=== PATIENT | male | born 1955 | race Caucasian/White ===

== ENCOUNTER 2016-09-04 17:00 | Emergency (ER) | payer BC ==
[2016-09-04 17:11] VITALS: BP 101/57; PULSE 66; RESP 18; TEMP 98.3
[2016-09-04] MEDS ORDERED: DIPH,PERTUS(ACELL)TETVAC-LF 0.5 ML VIAL IM ONE (17:47)
--- NOTE | 2016-09-04 18:16 | ED ---
Wound/Laceration HPI - General Chief Complaint: Wound/Laceration Stated Complaint: Thumb Laceration Time Seen by Provider: 09/04/16 17:42 Source: patient Mode of arrival: ambulatory Limitations: no limitations - History of Present Illness Initial Comments: Patient is a right-handed 61-year-old male presenting to the emergency department with complaints of right distal palmar thumb laceration. Onset of injury at 4 PM. Patient states he was peeling vegetables when he cut himself with a knife. Patient complains of mild pain currently rated 4 out of 10. Patient denies need for pain medication. Patient denies chills, fevers, nausea , vomiting, shortness of breath, chest pain, abdominal pain, numbness or tingling. Patient unsure when he last received his tetanus sensation. Patient denies previous injury or surgery to right hand. No treatment prior to arrival. Place: home Patient Tetanus UTD: No Context: accidental Associated Symptoms: pain - Related Data Home Medications Medication Instructions Recorded Confirmed Aspirin [Adult Low Dose Aspirin EC] 2 tab PO DAILY 07/22/16 09/04/16 Atorvastatin [Lipitor] 40 mg PO DAILY 07/22/16 09/04/16 Escitalopram [Lexapro] 10 mg PO DAILY 07/22/16 09/04/16 Losartan/Hydrochlorothiazide 1 each PO DAILY 07/22/16 09/04/16 [Losartan-Hctz 100-25 mg Tab] Niacinamide [Niacin] 500 mg PO DAILY 07/22/16 09/04/16 Vitamin E (Dl,Tocopheryl Acet) 400 unit PO DAILY 07/22/16 09/04/16 [Vitamin E] Previous Rx's Medication Instructions Recorded Cephalexin [Keflex] 500 mg PO Q6HR #28 cap 09/04/16 Allergies Allergy/AdvReac Type Severity Reaction Status Date / Time No Known Allergies Allergy Verified 09/04/16 17:11 Review of Systems ROS Statement: Those systems with pertinent positive or pertinent negative responses have been documented in the HPI. ROS Other: All systems not noted in ROS Statement are negative. Past Medical History Past Medical History: Cancer, Hyperlipidemia, Hypertension Additional Past Medical History / Comment(s): basal cell skin cancer History of Any Multi-Drug Resistant Organisms: None Reported Past Surgical History: Heart Catheterization, Orthopedic Surgery Additional Past Surgical History / Comment(s): rt foot x2 Past Anesthesia/Blood Transfusion Reactions: Motion Sickness Past Psychological History: No Psychological Hx Reported Smoking Status: Never smoker Past Alcohol Use History: None Reported Past Drug Use History: None Reported - Past Family History Mother Family Medical History: Cancer Additional Family Medical History / Comment(s): basal cell skin cancer Father Family Medical History: Cancer Additional Family Medical History / Comment(s): basal cell skin cancer General Exam Limitations: no limitations General appearance: alert, in no apparent distress Head exam: Present: atraumatic, normocephalic, normal inspection Eye exam: Present: normal appearance, PERRL, EOMI. Absent: scleral icterus, conjunctival injection, periorbital swelling ENT exam: Present: normal exam, mucous membranes moist Neck exam: Present: normal inspection, full ROM Respiratory exam: Present: normal lung sounds bilaterally. Absent: respiratory distress, wheezes, rales, rhonchi Cardiovascular Exam: Present: regular rate, normal rhythm, normal heart sounds. Absent: systolic murmur, diastolic murmur, rubs, gallop, clicks GI/Abdominal exam: Present: soft, normal bowel sounds Right Forearm Wrist exam: Present: normal inspection, full ROM. Absent: tenderness, swelling Hand Wrist exam: Present: full ROM, tenderness, laceration (3 cm laceration to palmar medial aspect of proximal thumb). Absent: swelling Neuro motor exam: Present: wrist extension intact, thumb opposition intact, thumb IP flexion intact, thumb adduction intact, fingers 2-5 abduction intact Neurosensory exam: Present: 2-point discrimination, radial nerve intact, ulnar nerve intact, median nerve intact Vascular: Present: normal capillary refill, radial pulse, brachial pulse, ulnar pulse. Absent: vascular compromise, pulse deficit radial art, pulse deficit ulnar art, pulse deficit brachial art Neurological exam: Present: alert, oriented X3 Psychiatric exam: Present: normal affect, normal mood Skin exam: Present: warm, dry, intact, normal color. Absent: rash Course Vital Signs 09/04/16 17:09 Temperature 98.3 F Pulse Rate 66 Respiratory 18 Rate Blood Pressure 101/57 O2 Sat by Pulse 97 Oximetry Procedures - Laceration Laceration #1 Consent Obtained: verbal consent Time Out Performed: No Indication: laceration Site: hand (Proximal, medial, palmar thumb) Size (cm): 3 Description: linear Depth: simple, single layer Anesthetic Used: lidocaine 1% Anesthesia Technique: local infiltration Amount (mls): 2 Pre-repair: wound explored, irrigated extensively, deep structures intact Type of Sutures: nylon Size of Sutures: 5-0 Number of Sutures: 5 Technique: simple, interrupted Patient Tolerated Procedure: well, no complications Medical Decision Making - Medical Decision Making Laceration to right thumb. X-ray without fracture or foreign body. Laceration sutured without complications. Discharge instructions and return parameters reviewed with patient. - Radiology Data Radiology results: report reviewed X-ray right thumb: No fracture or dislocation. No sign of foreign body. Joint spaces are normal. Disposition Clinical Impression: Laceration of right thumb without complication Disposition: HOME SELF-CARE Condition: Good Instructions: Finger Laceration (ED), Care For Your Stitches (ED) Additional Instructions: Keep wound dry and clean for 24 hours, if dressing exudative, sweats, change in immediately. May gently clean the edges of the wound daily with a cotton swab saturated peroxide to remove crusts. Return immediately with signs of infection such as redness or red streaks, increased pain, swelling, or fevers. Please finish antibiotics and prescribed. Return for suture removal in approximately 10 days sooner if any complications. Follow-up with primary care physician as needed. Prescriptions: Cephalexin [Keflex] 500 mg PO Q6HR #28 cap Referrals: Burak Ortez DO [Primary Care Provider] - 1-2 days Time of Disposition: 18:58
--- NOTE | 2016-09-04 18:30 | XR ---
EXAMINATION TYPE: XR finger RT DATE OF EXAM: 09/04/2016 6:12 PM COMPARISON: NONE HISTORY: Cut first digit TECHNIQUE: 3 views FINDINGS: I see no fracture nor dislocation. There is no sign of a foreign body. Joint spaces are nor mal. IMPRESSION: Negative right thumb exam.
== END 2016-09-04 19:15 | disposition home or self-care (01) ==
LOC: EC 17:00
DX: S61.011A Laceration without foreign body of right thumb without damage to nail, initial encounter (principal); W26.0XXA Contact with knife, initial encounter; Y92.009 Unspecified place in unspecified non-institutional (private) residence as the place of occurrence of the external cause; Y93.G3 Activity, cooking and baking; Z98.61 Coronary angioplasty status; Z79.82 Long term (current) use of aspirin; Z79.899 Other long term (current) drug therapy; Z23 Encounter for immunization
CPT/HCPCS: 12002; 90471; 90715; 99283

== ENCOUNTER → 2017-10-04 | Outpatient (CLI) | payer BC ==
[2017-10-04 10:07] LABS: Blood Urea Nitrogen 17 mg/dL (9-20)
--- NOTE | 2017-10-04 12:25 | MR ---
EXAMINATION TYPE: MR brain and iac wo/w con DATE OF EXAM: 10/04/2017 COMPARISON: NONE HISTORY: Benign paroxysmal vertigo TECHNIQUE: Multiplanar, multisequence images of the brain and brainstem is performed without and with IV contras t, utilizing 9.5 mL intravenous Gadavist . FINDINGS: Diffusion weighted images demonstrate no evidence of a recent infarct or other diffusion ab normality. There is a subcentimeter nodule within both parotid glands. No cerebellopontine angle mass or acoustic schwannoma. Mastoid air cells have a normal appearance. Mi dline structures demonstrate normal morphology. The craniocervical junction appears within normal li mits. Post contrast images demonstrate no abnormal enhancement. The dural venous sinuses appear patent. The re is a nasal septal deviation and mild changes of chronic sinusitis. The globes are intact. There are couple scattered areas of abnormal signal within the white matter which measure less than 5 mm and is too small to characterize. IMPRESSION: 1. No evidence of cerebellopontine angle mass or acoustic schwannoma. 2. Minimal nonspecific white matter changes. 3. There are subcentimeter nodules within the parotid gland bilaterally.
== END | disposition home or self-care (01) ==
LOC: RADMRIMAIN 09:12
PROVIDERS: ATTEND Family Medicine
DX: R90.82 White matter disease, unspecified (principal); H81.10 Benign paroxysmal vertigo, unspecified ear; K11.8 Other diseases of salivary glands
CPT/HCPCS: 82565; 84520; 70553; 36415; A9581

== ENCOUNTER → 2018-04-25 | Outpatient (CLI) | payer BC ==
--- NOTE | 2018-04-25 18:13 | US ---
EXAMINATION TYPE: US thyroid st tissue head/neck DATE OF EXAM: 04/25/2018 COMPARISON: MRI CLINICAL HISTORY: alfreda parotid nodules, D49.0; patient stated ultrasound was for thyroid, thus both p arotid and thyroid glands were assessed. GLAND SIZE: Right Lobe: 5.3 x 1.9x 2.5 cm Overall Parenchyma: homogenous Left Lobe: 4.4 x 2.0 x 2.0 cm Overall Parenchyma: homogeneous Isthmus Thickness: 0.5 cm NODULES RIGHT: # of nodules measured on right: 1 1. 1.4 X 1.2 x 1.1 cm hypoechoic mixed nodule at the mid pole with well-defined margins. This nodu le is wider than tall and shows intranodular vascularity. LEFT: # of nodules measured on left: 0 ISTHMUS: # of nodules measured in the isthmus: 0 Bilateral Parotid Gland US was performed per physician order: Superior right parotid gland lymph node is seen = 0.8 x 0.8 x 0.5cm; Superior left parotid gland lymph node is imaged = 0.9 x 0.8 x 0.6cm. IMPRESSION: Unremarkable parotid gland. Dominant thyroid nodule in the right lobe of the gland shows mixed solid and cystic components.
== END ==
LOC: RADUSWWP 14:57
PROVIDERS: ATTEND Otolaryngology
DX: E04.1 Nontoxic single thyroid nodule (principal)
CPT/HCPCS: 76536

== ENCOUNTER 2018-05-26 12:20 | Day surgery (SDC) | payer BC ==
[2018-05-26 12:35] VITALS: RESP 16; TEMP 98
[2018-05-26 13:18] VITALS: BP 138/77; PULSE 68
--- NOTE | 2018-05-26 16:06 | US ---
EXAMINATION TYPE: US FNA thyroid DATE OF EXAM: 05/26/2018 COMPARISON: Ultrasound 04/25/2018 HISTORY: Thyroid nodule. Maximal barrier technique was utilized. After informed consent, skin overlying the lesion was locali zed with ultrasound and the overlying skin prepped and draped. Ultrasound was utilized using sterile technique. Lidocaine was used for local anesthesia. Five passes with a 25-gauge needle were made int o the right thyroid nodule and aspirated specimen was submitted to cytology. Following the procedure hemostasis achieved. No immediate complication. The patient discharged in stable condition. IMPRESSION: STATUS POST ULTRASOUND GUIDED FINE NEEDLE ASPIRATION OF THYROID NODULE, PATHOLOGY IS PEND ING. THIS PROCEDURE WAS PERFORMED BY THE UNDERSIGNED.
== END 2018-05-26 13:25 | disposition home or self-care (01) ==
LOC: RADPROMAIN 12:20
PROVIDERS: ATTEND Otolaryngology
DX: E04.1 Nontoxic single thyroid nodule (principal)
CPT/HCPCS: 10022; 76942; 88173; 88305

== ENCOUNTER 2018-09-09 21:22 | Emergency (ER) | payer MEDICARE, BC ==
[2018-09-09] MEDS ORDERED: NITROGLYCERIN SL TABS 0.4 MG TAB SUBLINGUAL STA (21:33)
[2018-09-09] MEDS ORDERED: ASPIRIN 81 MG PO STA (21:33)
[2018-09-09 22:18] LABS: Basophils % (A) 0 %; Eosinophils # (A) 0.1 k/uL (0-0.7); Eosinophils % (A) 2 %; HCT 42.6 % (39.0-53.0); HGB 14.2 gm/dL (13.0-17.5); Lymphocytes # (A) 2.9 k/uL (1.0-4.8); Lymphocytes % (A) 40 %; MCH 29.2 pg (25.0-35.0); MCHC 33.3 g/dL (31.0-37.0); MCV 87.7 fL (80.0-100.0); Mean Platelet Volume 6.6; Monocytes # (A) 0.6 k/uL (0-1.0); Monocytes % (A) 8 %; Neutrophils # (A) 3.5 k/uL (1.3-7.7); Neutrophils % (A) 48 %; Platelet Count 261 k/uL (150-450); RBC 4.86 m/uL (4.30-5.90); RDW 13.5 % (11.5-15.5); WBC 7.2 k/uL (3.8-10.6)
--- NOTE | 2018-09-09 22:19 | ED ---
General Adult HPI - General Chief complaint: Chest Pain Stated complaint: Arm pain Time Seen by Provider: 09/09/18 21:32 Source: patient Mode of arrival: ambulatory Limitations: no limitations - History of Present Illness Initial comments: This patient is 63-year-old man who presents with complaint of pain is aching down the left arm. He states that it started this morning, but he is not recalling exactly what he is doing when it came on. He does not recall any trauma to the arm. The patient states that it has been mild to moderate intensity, had been constant, though it has resolved now. He had not noted worsening or relieving factors. The thing that concerned him was that his blood pressure has been running about 40 points higher than usual through most of the day. He has not had any other associated symptoms. He denies diaphoresis, dyspnea, palpitations, lightheadedness or syncope, nausea or vomiting. Onset/Timin -: hour(s) Location: left, upper extremity Quality: aching Consistency: constant, now resolved Improves with: none Worsens with: none Associated Symptoms: denies other symptoms - Related Data Home Medications Medication Instructions Recorded Confirmed Escitalopram [Lexapro] 10 mg PO DAILY 07/22/16 09/09/18 Losartan/Hydrochlorothiazide 1 tab PO DAILY 07/22/16 09/09/18 [Losartan-Hctz 100-25 mg Tab] Niacinamide [Niacin] 500 mg PO DAILY 07/22/16 09/09/18 Vitamin E (Dl,Tocopheryl Acet) 400 unit PO DAILY 07/22/16 09/09/18 [Vitamin E] Allergies Allergy/AdvReac Type Severity Reaction Status Date / Time No Known Allergies Allergy Verified 09/09/18 21:31 Review of Systems ROS Statement: Those systems with pertinent positive or pertinent negative responses have been documented in the HPI. ROS Other: All systems not noted in ROS Statement are negative. Constitutional: Denies: fever, chills, weakness Respiratory: Denies: cough, dyspnea Cardiovascular: Denies: chest pain, palpitations, orthopnea, edema, syncope Gastrointestinal: Denies: abdominal pain, nausea, vomiting, diarrhea Genitourinary: Denies: dysuria, hematuria Musculoskeletal: Denies: back pain Skin: Denies: rash Neurological: Denies: headache, weakness, numbness Past Medical History Past Medical History: Cancer, Hyperlipidemia, Hypertension Additional Past Medical History / Comment(s): basal cell skin cancer History of Any Multi-Drug Resistant Organisms: None Reported Past Surgical History: Heart Catheterization, Orthopedic Surgery Additional Past Surgical History / Comment(s): rt foot x2, skin cs removed Past Anesthesia/Blood Transfusion Reactions: No Reported Reaction Past Psychological History: No Psychological Hx Reported Smoking Status: Never smoker Past Alcohol Use History: None Reported Past Drug Use History: None Reported - Past Family History Mother Family Medical History: Cancer Additional Family Medical History / Comment(s): basal cell skin cancer Father Family Medical History: Cancer Additional Family Medical History / Comment(s): basal cell skin cancer General Exam Limitations: no limitations General appearance: alert, in no apparent distress Head exam: Present: atraumatic, normocephalic Eye exam: Present: normal appearance Neck exam: Present: normal inspection Respiratory exam: Present: normal lung sounds bilaterally. Absent: respiratory distress, wheezes, rales, rhonchi, stridor Cardiovascular Exam: Present: regular rate, normal rhythm, normal heart sounds. Absent: systolic murmur, diastolic murmur, rubs, gallop GI/Abdominal exam: Present: soft. Absent: distended, tenderness, guarding, rebound, rigid, mass Extremities exam: Present: normal inspection, normal capillary refill. Absent: pedal edema, calf tenderness Back exam: Present: normal inspection. Absent: CVA tenderness (R), CVA tenderness (L) Neurological exam: Present: alert Skin exam: Present: warm, dry, intact, normal color. Absent: rash Course Vital Signs 09/09/18 09/09/18 21:23 23:04 Temperature 98.4 F Pulse Rate 84 80 Respiratory 20 16 Rate Blood Pressure 169/94 122/74 O2 Sat by Pulse 99 98 Oximetry EKG Findings - EKG Results: EKG: interpreted by ISMAEL CHUAL, sinus rhythm (Rate 82 bpm), normal axis, normal QRS, normal ST/T, no acute changes - ME, Pacemaker, Normal: Normal tracing: normal tracing Medical Decision Making - Medical Decision Making This patient is 63-year-old man with left arm pain since the morning. His workup here is negative. The ECG is normal. Discussed with patient further care and follow-up. He is not having any symptoms currently. We discussed that he must return should the symptoms recur, should he develop any new symptoms. - Lab Data Result diagrams: 09/09/18 21:50 09/09/18 21:50 Lab Results 09/09/18 09/09/18 09/09/18 Range/Units 21:50 21:50 21:50 WBC 7.2 (3.8-10.6) k/uL RBC 4.86 (4.30-5.90) m/uL Hgb 14.2 (13.0-17.5) gm/dL Hct 42.6 (39.0-53.0) % MCV 87.7 (80.0-100.0) fL MCH 29.2 (25.0-35.0) pg MCHC 33.3 (31.0-37.0) g/dL RDW 13.5 (11.5-15.5) % Plt Count 261 (150-450) k/uL Neutrophils % 48 % Lymphocytes % 40 % Monocytes % 8 % Eosinophils % 2 % Basophils % 0 % Neutrophils # 3.5 (1.3-7.7) k/uL Lymphocytes # 2.9 (1.0-4.8) k/uL Monocytes # 0.6 (0-1.0) k/uL Eosinophils # 0.1 (0-0.7) k/uL Basophils # 0.0 (0-0.2) k/uL PT (9.0-12.0) sec INR (<1.2) APTT (22.0-30.0) sec D-Dimer (<0.60) mg/L FEU Sodium 142 (137-145) mmol/L Potassium 3.4 L (3.5-5.1) mmol/L Chloride 106 (98-107) mmol/L Carbon Dioxide 27 (22-30) mmol/L Anion Gap 9 mmol/L BUN 19 (9-20) mg/dL Creatinine 1.17 (0.66-1.25) mg/dL Est GFR (CKD-EPI)AfAm 75 (>60 ml/min/1.73 sqM) Est GFR (CKD-EPI)NonAf 65 (>60 ml/min/1.73 sqM) Glucose 132 H (74-99) mg/dL Calcium 10.0 (8.4-10.2) mg/dL Magnesium 2.2 (1.6-2.3) mg/dL Total Bilirubin 1.2 (0.2-1.3) mg/dL AST 40 (17-59) U/L ALT 47 (21-72) U/L Alkaline Phosphatase 72 (38-126) U/L Total Creatine Kinase 211 H (55-170) U/L CK-MB (CK-2) 1.0 (0.0-2.4) ng/mL CK-MB (CK-2) Rel Index 0.5 Troponin I <0.012 (0.000-0.034) ng/mL Total Protein 7.3 (6.3-8.2) g/dL Albumin 4.2 (3.5-5.0) g/dL 09/09/18 Range/Units 21:50 WBC (3.8-10.6) k/uL RBC (4.30-5.90) m/uL Hgb (13.0-17.5) gm/dL Hct (39.0-53.0) % MCV (80.0-100.0) fL MCH (25.0-35.0) pg MCHC (31.0-37.0) g/dL RDW (11.5-15.5) % Plt Count (150-450) k/uL Neutrophils % % Lymphocytes % % Monocytes % % Eosinophils % % Basophils % % Neutrophils # (1.3-7.7) k/uL Lymphocytes # (1.0-4.8) k/uL Monocytes # (0-1.0) k/uL Eosinophils # (0-0.7) k/uL Basophils # (0-0.2) k/uL PT 9.8 (9.0-12.0) sec INR 0.9 (<1.2) APTT 21.8 L (22.0-30.0) sec D-Dimer 0.32 (<0.60) mg/L FEU Sodium (137-145) mmol/L Potassium (3.5-5.1) mmol/L Chloride (98-107) mmol/L Carbon Dioxide (22-30) mmol/L Anion Gap mmol/L BUN (9-20) mg/dL Creatinine (0.66-1.25) mg/dL Est GFR (CKD-EPI)AfAm (>60 ml/min/1.73 sqM) Est GFR (CKD-EPI)NonAf (>60 ml/min/1.73 sqM) Glucose (74-99) mg/dL Calcium (8.4-10.2) mg/dL Magnesium (1.6-2.3) mg/dL Total Bilirubin (0.2-1.3) mg/dL AST (17-59) U/L ALT (21-72) U/L Alkaline Phosphatase (38-126) U/L Total Creatine Kinase (55-170) U/L CK-MB (CK-2) (0.0-2.4) ng/mL CK-MB (CK-2) Rel Index Troponin I (0.000-0.034) ng/mL Total Protein (6.3-8.2) g/dL Albumin (3.5-5.0) g/dL Disposition Clinical Impression: Arm pain, left Disposition: HOME SELF-CARE Condition: Good Instructions (If sedation given, give patient instructions): Arm Pain (ED) Is patient prescribed a controlled substance at d/c from ED?: No Referrals: Burak Ortez DO [Primary Care Provider] - 1-2 days
[2018-09-09 22:27] LABS: Albumin 4.2 g/dL (3.5-5.0); Magnesium 2.2 mg/dL (1.6-2.3); Potassium 3.4 mmol/L (3.5-5.1); Total Bilirubin 1.2 mg/dL (0.2-1.3); Total Protein 7.3 g/dL (6.3-8.2)
[2018-09-09 22:37] LABS: Creatine Kinase 211 U/L (55-170)
--- NOTE | 2018-09-09 22:40 | XR ---
EXAM: XR Chest, 1 View CLINICAL HISTORY: ITS.REASON XR Reason: chest pain TECHNIQUE: Frontal view of the chest. COMPARISON: No relevant prior studies available. IMPRESSION: Normal heart size. No consolidation or pleural effusion.
[2018-09-09 22:42] LABS: D-Dimer 0.32 mg/L FEU (<0.60); INR 0.9 (<1.2); Prothrombin Time 9.8 sec (9.0-12.0)
[2018-09-09 22:50] LABS: Troponin I <0.012 ng/mL (0.000-0.034)
[2018-09-09 22:57] LABS: Partial Thromboplastin Time 21.8 sec (22.0-30.0)
[2018-09-09 23:05] VITALS: BP 122/74; RESP 16
[2018-09-09 23:56] VITALS: PULSE 78; TEMP 97.6
== END 2018-09-09 23:50 | disposition home or self-care (01) ==
LOC: EC 21:22
DX: M79.602 Pain in left arm (principal); R07.9 Chest pain, unspecified; I10 Essential (primary) hypertension; Z79.899 Other long term (current) drug therapy; Z95.5 Presence of coronary angioplasty implant and graft; Z85.828 Personal history of other malignant neoplasm of skin
CPT/HCPCS: 36415; 71045; 80053; 82550; 82553; 83735; 84484; 85025; 85379; 85610; 85730; 93005; 99285

== ENCOUNTER → 2019-04-04 | Outpatient (CLI) | payer BC ==
--- NOTE | 2019-04-04 14:38 | US ---
EXAMINATION TYPE: US thyroid st tissue head/neck DATE OF EXAM: 04/04/2019 COMPARISON: NONE CLINICAL HISTORY: E04.1 THYROID NODULE. GLAND SIZE: Right Lobe: 5.9 x 1.9 x 3.1 cm Overall Parenchyma: homogenous Left Lobe: 5.2 x 1.5 x 2.2 cm Overall Parenchyma: homogeneous Isthmus Thickness: 0.4 cm NODULES RIGHT: # of nodules measured on right: 1 1. 1.5 X 1.1 x 1.1 cm mixed nodule at the mid pole with well-defined margins. This nodule is wider than tall and shows no intranodular vascularity. Prior size: 1.4 x 1.2 x 1.1 cm LEFT: # of nodules measured on left: 0 ISTHMUS: # of nodules measured in the isthmus: 0 Bilateral neck scanned, no evidence of lymphadenopathy. IMPRESSION: Thyromegaly with 1.5 cm right thyroid nodule is essentially stable given differences in technique.
== END | disposition home or self-care (01) ==
LOC: RADUSWWP 14:11
PROVIDERS: ATTEND Otolaryngology
DX: E04.9 Nontoxic goiter, unspecified (principal)
CPT/HCPCS: 76536

== ENCOUNTER → 2019-04-26 | Outpatient (CLI) | payer BC ==
--- NOTE | 2019-04-26 19:51 | PN ---
PROGRESS NOTE . DATE OF SERVICE: 04/26/2019 63-year-old gentleman who has been followed [facility] the [facility] for treatment of obstructive sleep apnea and central sleep apnea syndrome. The patient continued to use his BiPAP equipment every night for the whole night without significant problems related to mask fitting, pressure or humidification. [place] Sleepiness Scale today is 6. I checked his BiPAP unit. The pressure is 13/9 cm of water with ST mode with a respiratory rate of 12. Usage is 25/30 nights for more than 4 hours with average usage, 8.1 hours per night. Leak 25 L/minute which is borderline. Apnea-hypopnea index only 1.3, which is absolutely perfect. CURRENT MEDICATIONS: Valsartan, hydrochlorothiazide, Lexapro, Norvasc. PHYSICAL EXAM: Patient in no distress. BP 122/72, HR 64, RR 16, height 6 feet 1 inch, weight 225, body mass index 29.6, temperature 97.3, oxygen saturation at room air 97%. Oropharynx: Low position of soft palate. Mallampati 3. Neck Supple, no JVD. Thyroid is not palpable. LUNGS Clear to percussion and to auscultation. Good air exchange. No wheezing or rhonchi. HEART S1, S2 regular. No murmurs, gallops, or rubs. ABDOMEN: Soft and nontender. Bowel sounds are present. No organomegaly appreciated. EXTREMITIES No clubbing or cyanosis. CHANNEL SUPERVISOR Awake, alert, and oriented X3. Cranial nerves 2 to 7 intact. There is no fasciculation or atrophy. noted. No focal deficits observed. IMPRESSION: 1. Obstructive and central sleep apnea-hypopnea syndrome on full control with BiPAP on ST mode. The patient demonstrated great compliance with treatment benefitting from treatment. 2. Hypertension. 3. History of anxiety. 4. Hyperlipidemia. PLAN: 1. Patient will continue to use BiPAP therapy every night for the whole night. 2. Watching and losing weight. 3. Sleep hygiene with regular time in bed for at least 8 hours. 4. No driving if feeling any sleepiness. 5. Prescription for all necessary BiPAP supplies including mask, tube, filters. 6. Follow-up visit in 1 year or earlier if patient has any problems. Thank you very much for allowing me to participate in management of your patient. Sincerely, Jair Boston MD, PhD, FAASM Diplomat of [place] [employer] [place] [employer] Drainage Design Coordinator of [facility] [place] MMODL / MARÍAN: [id number] /
== END | disposition home or self-care (01) ==
LOC: SLEEP 16:21
PROVIDERS: ATTEND Internal Medicine
DX: G47.33 Obstructive sleep apnea (adult) (pediatric) (principal); I10 Essential (primary) hypertension; E78.5 Hyperlipidemia, unspecified; Z86.59 Personal history of other mental and behavioral disorders; Z99.89 Dependence on other enabling machines and devices; Z79.84 Long term (current) use of oral hypoglycemic drugs; Z79.899 Other long term (current) drug therapy

== ENCOUNTER → 2019-11-30 | Outpatient (CLI) | payer BC ==
--- NOTE | 2019-11-30 15:52 | CT ---
EXAMINATION TYPE: CT abdomen pelvis w con DATE OF EXAM: 11/30/2019 COMPARISON: None HISTORY: Bilateral quadrant tenderness, periumbilic abdominal tenderness CT DLP: 1698 mGycm Automated exposure control for dose reduction was used. TECHNIQUE: Helical acquisition of images was performed from the lung bases through the pelvis. CONTRAST: Performed with Oral Contrast and with IV Contrast, patient injected with 100 ml mL of Isovue 300. FINDINGS: LUNG BASES: Multifocal subsegmental atelectasis and/or pleural parenchymal scarring are seen at the l navya bases. Small to moderate hiatal hernia. There is eccentric thickening of the distal esophagus rig ht laterally measuring 1.5 cm. LIVER/GB: There is mild hypoattenuation of the hepatic parenchyma approaching criteria for hepatic st eatosis however this does not yet meet criteria for hepatic steatosis. No radiopaque calculi are seen within the gallbladder. PANCREAS: Pancreas is of unremarkable enhancement. SPLEEN: No splenomegaly. ADRENALS: No nodularity or thickening. KIDNEYS: 3.8 cm fluid attenuated left upper pole renal cyst is present. Barium mild bilateral pelvoca liectasis without jolynn hydronephrosis of either kidney. Kidneys enhance and excrete symmetrically. V kaycee small urachal remnant is incidentally seen of the urinary bladder. FREE AIR: No free air is visualized. ADENOPATHY: No greater than 1 cm short axis lymph node in the abdomen or pelvis. OSSEOUS STRUCTURES: Nonspecific sclerotic foci of the proximal left femur are punctate. Very mild le voscoliosis of the lumbar spine may be positional. BOWEL: Long segment thickening of the sigmoid colon may relate to incomplete distention. Numerous co lonic diverticula are seen without pericolonic fat stranding. Thickening of the cecum is also seen on image 57. Appendix appears retrocecal and within normal limits. No thickening of the terminal ileum are surrounding inflammatory fat stranding. OTHER: Moderate atherosclerosis of the abdominal aorta and its branches. IMPRESSION: 1. Eccentric thickening of the distal esophagus at the right lateral aspect measuring 1.5 cm. Endosco py is recommended. [id number] hiatal hernia is also seen. 2. Long segment thickening of the sigmoid colon could relate to incompletely distended however there is also thickening of the sigmoid colon and therefore colonoscopy is recommended to evaluate both fin dings.
== END | disposition home or self-care (01) ==
LOC: RADCTMAIN 09:30
PROVIDERS: ATTEND Family Medicine
DX: K44.9 Diaphragmatic hernia without obstruction or gangrene (principal); K63.89 Other specified diseases of intestine; R10.814 Left lower quadrant abdominal tenderness; R10.815 Periumbilic abdominal tenderness; R10.813 Right lower quadrant abdominal tenderness
CPT/HCPCS: 82565; 84520; 74177; 36415; Q9967

== ENCOUNTER → 2020-05-16 | Outpatient (CLI) | payer BC ==
--- NOTE | 2020-05-16 17:50 | US ---
EXAMINATION TYPE: US thyroid st tissue head/neck DATE OF EXAM: 05/16/2020 COMPARISON: 04/04/2019 CLINICAL HISTORY: E04.1 Thyroid nodule. Follow up GLAND SIZE: Right Lobe: 5.7 x 2.0 x 2.4 cm Overall Parenchyma: heterogenous Left Lobe: 5.9 x 1.3 x 2.0 cm Overall Parenchyma: homogeneous Isthmus Thickness: 0.4 cm NODULES RIGHT: # of nodules measured on right: 1 1. 1.5 X 1.0 x 0.9 cm hypoechoic mixed nodule at the mid pole with well-defined margins. This nodu le is wider than tall and shows intranodular vascularity. Prior size: 1.5 x 1.1 x 1.1 cm LEFT: # of nodules measured on left: 0 ISTHMUS: # of nodules measured in the isthmus: 0 Bilateral neck scanned, no evidence of lymphadenopathy. IMPRESSION: Thyromegaly with stable right-sided thyroid nodule unchanged from prior exam. Correlate for thyroidit is.
== END | disposition home or self-care (01) ==
LOC: RADUSWWP 16:52
PROVIDERS: ATTEND Otolaryngology
DX: E04.2 Nontoxic multinodular goiter (principal)
CPT/HCPCS: 76536

== ENCOUNTER 2020-07-22 01:52 | Emergency (ER) | payer BC ==
[2020-07-22 02:00] VITALS: RESP 16
--- NOTE | 2020-07-22 02:15 | ED ---
Chest Pain HPI - General Chief Complaint: Chest Pain Stated Complaint: Chest Pain Time Seen by Provider: 07/22/20 02:04 Source: patient, RN notes reviewed, old records reviewed Mode of arrival: wheelchair Limitations: no limitations - History of Present Illness Initial Comments: This is a 64-year-old male DF for evaluation of chest pain anterior chest pain chest pain and left-sided chest and also down both arms tingling no diaphoresis still he did feel maybe like he was sweaty and clammy. No significant shortness of breath symptoms about 4-5 hours prior to arrival. Patient has high blood pressure cholesterol no history of heart disease. Stress test within the past year. Patient otherwise has no sick contacts no fevers no other complaints MD Complaint: chest pain, other (Palpitations and what he feels like was an arrhythmia) -: hour(s) (5) Onset: during rest, awoke with symptoms Pain Location: substernal, left chest Pain Radiation: RUE, LUE Severity: mild Severity scale (1-10): 2 Quality: tightness Consistency: constant, now resolved Improves With: nothing Worsens With: nothing Anginal Symptoms: diaphoresis, dyspnea Other Symptoms: palpitations Treatments Prior to Arrival: none - Related Data Home Medications Medication Instructions Recorded Confirmed Escitalopram [Lexapro] 10 mg PO DAILY 07/22/16 09/09/18 Losartan/Hydrochlorothiazide 1 tab PO DAILY 07/22/16 09/09/18 [Losartan-Hctz 100-25 mg Tab] Niacinamide [Niacin] 500 mg PO DAILY 07/22/16 09/09/18 Vitamin E (Dl,Tocopheryl Acet) 400 unit PO DAILY 07/22/16 09/09/18 [Vitamin E] Allergies Allergy/AdvReac Type Severity Reaction Status Date / Time Tgdderf-Bcu-Lwm Reductase AdvReac Unknown Verified 07/22/20 02:00 Inhibitor Review of Systems ROS Statement: Those systems with pertinent positive or pertinent negative responses have been documented in the HPI. ROS Other: All systems not noted in ROS Statement are negative. EKG Findings - EKG Comments: EKG Findings:: EKG is sinus rhythm 66 SC 180 QRS 90 QTC 448 Past Medical History Past Medical History: Cancer, Hyperlipidemia, Hypertension Additional Past Medical History / Comment(s): basal cell skin cancer History of Any Multi-Drug Resistant Organisms: None Reported Past Surgical History: Heart Catheterization, Orthopedic Surgery Additional Past Surgical History / Comment(s): rt foot x2, skin cs removed Past Anesthesia/Blood Transfusion Reactions: No Reported Reaction Past Psychological History: No Psychological Hx Reported Smoking Status: Never smoker Past Alcohol Use History: Rare Past Drug Use History: None Reported - Past Family History Mother Family Medical History: Cancer Additional Family Medical History / Comment(s): basal cell skin cancer Father Family Medical History: Cancer Additional Family Medical History / Comment(s): basal cell skin cancer General Exam Limitations: no limitations General appearance: alert, in no apparent distress Head exam: Present: atraumatic, normocephalic, normal inspection Eye exam: Present: normal appearance, PERRL, EOMI. Absent: scleral icterus, conjunctival injection, periorbital swelling ENT exam: Present: normal exam, mucous membranes moist Neck exam: Present: normal inspection. Absent: tenderness, meningismus, lymp hadenopathy Respiratory exam: Present: normal lung sounds bilaterally. Absent: respiratory distress, wheezes, rales, rhonchi, stridor Cardiovascular Exam: Present: regular rate, normal rhythm, normal heart sounds. Absent: systolic murmur, diastolic murmur, rubs, gallop, clicks GI/Abdominal exam: Present: soft, normal bowel sounds. Absent: distended, tenderness, guarding, rebound, rigid Extremities exam: Present: normal inspection, full ROM, normal capillary refill. Absent: tenderness, pedal edema, joint swelling, calf tenderness Back exam: Present: normal inspection Neurological exam: Present: alert, oriented X3, CN II-XII intact Psychiatric exam: Present: normal affect, normal mood Skin exam: Present: warm, dry, intact, normal color. Absent: rash Course Vital Signs 07/22/20 07/22/20 01:56 03:30 Temperature 98.2 F 98.0 F Pulse Rate 78 64 Respiratory 16 16 Rate Blood Pressure 143/72 108/63 O2 Sat by Pulse 98 97 Oximetry - Reevaluation(s) Reevaluation #1: 07/22/20 02:52 Medical record is reviewed Reevaluation #2: 07/22/20 04:14 Patient feels fine throughout ER stay without any chest pain Reevaluation #3: 07/22/20 04:14 Patient informed results questions answered and okay for discharge Chest Pain MDM - MDM 64 male high blood pressure cholesterol significant cardiac risk coming in for chest pain today. Chest pain resolved prior to arrival remains resolved here in the ER. Patient would not like stay in the hospital as an inpatient currently. Will follow up with cardiology and return if symptoms return Disposition Clinical Impression: Chest pain Disposition: HOME SELF-CARE Condition: Undetermined Instructions (If sedation given, give patient instructions): Chest Pain (ED) Is patient prescribed a controlled substance at d/c from ED?: No Referrals: Burak Ortez DO [Primary Care Provider] - 1-2 days
[2020-07-22 02:41] LABS: Basophils # (A) 0.1 k/uL (0-0.2); Basophils % (A) 2 %; Eosinophils # (A) 0.2 k/uL (0-0.7); Eosinophils % (A) 4 %; HCT 41.6 % (39.0-53.0); HGB 14.4 gm/dL (13.0-17.5); Lymphocytes # (A) 1.3 k/uL (1.0-4.8); Lymphocytes % (A) 23 %; MCH 29.9 pg (25.0-35.0); MCHC 34.6 g/dL (31.0-37.0); MCV 86.4 fL (80.0-100.0); Monocytes # (A) 0.5 k/uL (0-1.0); Monocytes % (A) 8 %; Neutrophils # (A) 3.8 k/uL (1.3-7.7); Neutrophils % (A) 63 %; Platelet Count 222 k/uL (150-450); RBC 4.81 m/uL (4.30-5.90); RDW 12.9 % (11.5-15.5)
--- NOTE | 2020-07-22 02:46 | XR ---
EXAM: XR Chest, 2 Views CLINICAL HISTORY: ITS.REASON XR Reason: Chest Pain TECHNIQUE: Frontal and lateral views of the chest. COMPARISON: 09/09/2018 FINDINGS: Lungs: No consolidation or mass. Pleural space: No effusion. Heart: No cardiomegaly. Bones/joints: No acute findings. IMPRESSION: No acute cardiopulmonary process.
[2020-07-22 02:54] LABS: ALT 20 U/L (4-49); AST 27 U/L (17-59); African American GFR (CKD) >90 (>60 ml/min/1.73 sqM); Albumin 3.9 g/dL (3.5-5.0); Alkaline Phosphatase 82 U/L (38-126); Anion Gap 5 mmol/L; Blood Urea Nitrogen 19 mg/dL (9-20); Calcium 9.2 mg/dL (8.4-10.2); Carbon Dioxide 27 mmol/L (22-30); Chloride 108 mmol/L (98-107); Glucose 120 mg/dL (74-99); Lipase 175 U/L (23-300); Magnesium 2.1 mg/dL (1.6-2.3); Non-African American GFR(CKD) 88 (>60 ml/min/1.73 sqM); Potassium 3.8 mmol/L (3.5-5.1); Sodium 140 mmol/L (137-145); Total Bilirubin 0.8 mg/dL (0.2-1.3); Total Protein 6.9 g/dL (6.3-8.2)
[2020-07-22 04:01] LABS: Partial Thromboplastin Time 22.2 sec (22.0-30.0)
[2020-07-22 04:25] VITALS: BP 123/76; PULSE 70; TEMP 97.9
== END 2020-07-22 04:20 | disposition home or self-care (01) ==
LOC: EC 01:52
DX: R07.9 Chest pain, unspecified (principal); R20.2 Paresthesia of skin; R00.2 Palpitations; I10 Essential (primary) hypertension; Z79.899 Other long term (current) drug therapy; Z88.8 Allergy status to other drugs, medicaments and biological substances; Z95.5 Presence of coronary angioplasty implant and graft; Z98.890 Other specified postprocedural states; Z85.828 Personal history of other malignant neoplasm of skin
CPT/HCPCS: 36415; 71046; 80053; 83690; 83735; 83880; 84484; 85025; 85610; 85730; 93005; 99285

== ENCOUNTER 2020-10-18 23:37 | Emergency (ER) | payer BC ==
[2020-10-18] MEDS ORDERED: ACETAMINOPHEN TAB 500 MG TAB PO STA (23:38)
[2020-10-18] MEDS ORDERED: ALBUTEROL HFA INHALER INHALATION STA (23:38)
[2020-10-18] MEDS ORDERED: ALBUTEROL HFA INHALER INHALATION PRN (23:38)
[2020-10-18] MEDS ORDERED: IBUPROFEN 600 MG TAB PO STA (23:38)
[2020-10-18] MEDS ORDERED: SODIUM CHLORIDE 0.9% 1,000 ML IV STA ×2 (23:38)
--- NOTE | 2020-10-18 23:39 | ED ---
Recheck HPI - General Stated Complaint: +COVID, fever, PAOLO Time Seen by Provider: 10/18/20 23:37 Source: RN notes reviewed, old records reviewed Limitations: no limitations - History of Present Illness Initial Comments: This is a 65-year-old male to the ER for evaluation patient presents today for evaluation of shortness of breath fever with known history of positive for coronavirus. Patient was tested positive last Tuesday get results on Tuesday and today symptoms of pain weakness shortness of breath that progressed. Patient is otherwise no other complaints, just generalized body aches and pains no specific chest pain. Patient just feels weak and fatigued MD Complaint: abnormal lab (Positive coronavirus) -: week(s) Returns Today for: Called Because of Abnormal Lab/Test, persistent/worsening pain related to initial visit, other (Increasing weakness and shortness of breath) Symptoms Since Prior Visit: worsening pain, fever Context: planned re-check (Patient voluntarily evaluation for worsening shortness of breath) Associated Symptoms: fever, chills, shortness of breath, malaise Treatments Prior to Arrival: other (None) - Related Data Home Medications Medication Instructions Recorded Confirmed Escitalopram [Lexapro] 10 mg PO DAILY 07/22/16 09/09/18 Losartan/Hydrochlorothiazide 1 tab PO DAILY 07/22/16 09/09/18 [Losartan-Hctz 100-25 mg Tab] Niacinamide [Niacin] 500 mg PO DAILY 07/22/16 09/09/18 Vitamin E (Dl,Tocopheryl Acet) 400 unit PO DAILY 07/22/16 09/09/18 [Vitamin E] Allergies Allergy/AdvReac Type Severity Reaction Status Date / Time Unnozda-Oqs-Kjq Reductase AdvReac Unknown Verified 10/18/20 23:44 Inhibitor Review of Systems ROS Statement: Those systems with pertinent positive or pertinent negative responses have been documented in the HPI. ROS Other: All systems not noted in ROS Statement are negative. Past Medical History Past Medical History: Cancer, Hyperlipidemia, Hypertension Additional Past Medical History / Comment(s): basal cell skin cancer History of Any Multi-Drug Resistant Organisms: None Reported Past Surgical History: Heart Catheterization, Orthopedic Surgery Additional Past Surgical History / Comment(s): rt foot x2, skin cs removed Past Anesthesia/Blood Transfusion Reactions: No Reported Reaction Past Psychological History: No Psychological Hx Reported Smoking Status: Never smoker Past Alcohol Use History: Rare Past Drug Use History: None Reported - Past Family History Mother Family Medical History: Cancer Additional Family Medical History / Comment(s): basal cell skin cancer Father Family Medical History: Cancer Additional Family Medical History / Comment(s): basal cell skin cancer General Exam General appearance: alert, in no apparent distress, anxious Head exam: Present: atraumatic, normocephalic, normal inspection Eye exam: Present: normal appearance, PERRL, EOMI. Absent: scleral icterus, conjunctival injection, periorbital swelling ENT exam: Present: normal exam, mucous membranes moist Neck exam: Present: normal inspection. Absent: tenderness, meningismus, lymphadenopathy Respiratory exam: Present: normal lung sounds bilaterally. Absent: respiratory distress, wheezes, rales, rhonchi, stridor Cardiovascular Exam: Present: regular rate, normal rhythm, normal heart sounds. Absent: systolic murmur, diastolic murmur, rubs, gallop, clicks GI/Abdominal exam: Present: soft, normal bowel sounds. Absent: distended, tenderness, guarding, rebound, rigid Extremities exam: Present: normal inspection, full ROM, normal capillary refill. Absent: tenderness, pedal edema, joint swelling, calf tenderness Back exam: Present: normal inspection Neurological exam: Present: alert, oriented X3, CN II-XII intact Psychiatric exam: Present: normal affect, normal mood Skin exam: Present: warm, dry, intact, normal color. Absent: rash Course Vital Signs 10/18/20 10/18/20 10/19/20 23:42 23:56 00:00 Temperature 99.2 F Pulse Rate 89 87 Respiratory 16 18 18 Rate Blood Pressure 130/70 115/75 O2 Sat by Pulse 93 L 95 Oximetry - Reevaluation(s) Reevaluation #1: 10/19/20 00:58 Medical record is reviewed Reevaluation #2: 10/19/20 00:58 Patient is in no distress here in the ER no respiratory distress, states he does feel improved here in the ER with symptoms Reevaluation #3: 10/19/20 00:58 Spoke with patient at length regarding Bamlanivimab, monoclonal antibody infusion, he is agreeable to receive treatment Reevaluation #4: 10/19/20 01:59 Patient has no changes in symptoms during treatment, okay for discharge home Medical Decision Making - Medical Decision Making 65 male DF for evaluation. Patient is here with coronavirus, given monoclonal antibody infusion which she did agree to, patient no infection treatment, is in no distress here in the ER and can be discharged home - Lab Data Result diagrams: 10/19/20 00:15 Lab Results 10/19/20 10/19/20 Range/Units 00:15 00:15 WBC 10.3 (3.8-10.6) k/uL RBC 5.09 (4.30-5.90) m/uL Hgb 15.1 (13.0-17.5) gm/dL Hct 43.7 (39.0-53.0) % MCV 85.9 (80.0-100.0) fL MCH 29.7 (25.0-35.0) pg MCHC 34.6 (31.0-37.0) g/dL RDW 12.9 (11.5-15.5) % Plt Count 162 (150-450) k/uL MPV 7.9 Neutrophils % 85 % Lymphocytes % 8 % Monocytes % 6 % Eosinophils % 0 % Basophils % 1 % Neutrophils # 8.8 H (1.3-7.7) k/uL Lymphocytes # 0.8 L (1.0-4.8) k/uL Monocytes # 0.6 (0-1.0) k/uL Eosinophils # 0.0 (0-0.7) k/uL Basophils # 0.1 (0-0.2) k/uL Plasma Lactic Acid William 2.0 (0.7-2.0) mmol/L - EKG Data -: EKG Interpreted by Me (EKG shows sinus rhythm 85, OR 158 QRS 90 QTC 466) - Radiology Data Radiology results: report reviewed (Chest x-rays negative for acute disease), image reviewed Disposition Clinical Impression: Coronavirus infection Disposition: HOME SELF-CARE Condition: Good Instructions (If sedation given, give patient instructions): Coronavirus Disease 2019 (COVID-19) Is patient prescribed a controlled substance at d/c from ED?: No Referrals: Burak Ortez DO [Primary Care Provider] - 1-2 days
--- NOTE | 2020-10-18 23:56 | XR ---
EXAMINATION TYPE: XR chest 1V portable DATE OF EXAM: 10/18/2020 COMPARISON: 07/22/2020 HISTORY: Pneumonia. Chest pain TECHNIQUE: FINDINGS: There is some linear density at the lung bases. There is no heart failure. Heart size is no rmal. There are no hilar masses. There is no pleural effusion. IMPRESSION: There is some new mild infiltrate and atelectasis at the lung bases compared to old exam. No heart failure seen.
[2020-10-19] VITALS: RESP 18
[2020-10-19 00:45] LABS: Basophils # (A) 0.1 k/uL (0-0.2); Basophils % (A) 1 %; Eosinophils % (A) 0 %; HCT 43.7 % (39.0-53.0); HGB 15.1 gm/dL (13.0-17.5); Lymphocytes # (A) 0.8 k/uL (1.0-4.8); Lymphocytes % (A) 8 %; MCH 29.7 pg (25.0-35.0); MCHC 34.6 g/dL (31.0-37.0); MCV 85.9 fL (80.0-100.0); Mean Platelet Volume 7.9; Monocytes # (A) 0.6 k/uL (0-1.0); Monocytes % (A) 6 %; Neutrophils # (A) 8.8 k/uL (1.3-7.7); Neutrophils % (A) 85 %; Platelet Count 162 k/uL (150-450); RBC 5.09 m/uL (4.30-5.90); RDW 12.9 % (11.5-15.5); WBC 10.3 k/uL (3.8-10.6)
[2020-10-19 00:58] LABS: ALT 30 U/L (4-49); AST 46 U/L (17-59); African American GFR (CKD) >90 (>60 ml/min/1.73 sqM); Albumin 3.9 g/dL (3.5-5.0); Alkaline Phosphatase 74 U/L (38-126); Anion Gap 8 mmol/L; Blood Urea Nitrogen 19 mg/dL (9-20); C Reactive Protein 6.4 mg/L (<10.0); Carbon Dioxide 29 mmol/L (22-30); Chloride 99 mmol/L (98-107); Glucose 120 mg/dL (74-99); LDH 478 U/L (313-618); Magnesium 1.9 mg/dL (1.6-2.3); Non-African American GFR(CKD) 89 (>60 ml/min/1.73 sqM); Potassium 3.9 mmol/L (3.5-5.1); Sodium 136 mmol/L (137-145); Total Bilirubin 0.8 mg/dL (0.2-1.3); Total Protein 6.9 g/dL (6.3-8.2)
[2020-10-19 01:03] LABS: INR 0.9 (<1.2)
[2020-10-19 01:04] LABS: D-Dimer 0.47 mg/L FEU (<0.60); Partial Thromboplastin Time 24.1 sec (22.0-30.0); Prothrombin Time 9.7 sec (9.0-12.0)
[2020-10-19] MEDS ORDERED: BAMLANIVIMAB 700 MG in SODIUM CHLORIDE 0.9% 50 ML IVPB ONE (01:30)
[2020-10-19 02:08] VITALS: PULSE 80; TEMP 98.8
--- NOTE | 2020-10-19 02:27 | XR ---
EXAM: XR Chest, 1 View CLINICAL HISTORY: ITS.REASON XR Reason: sob TECHNIQUE: Frontal view of the chest. COMPARISON: 10/18/20. FINDINGS: Persistent bilateral lung opacities. Stable cardiomediastinal silhouette. Additional findings similar to prior. IMPRESSION: No significant interval change.
[2020-10-19 02:46] VITALS: BP 120/76
== END 2020-10-19 02:53 | disposition home or self-care (01) ==
LOC: EC 23:37
DX: U07.1 COVID-19 (principal)
CPT/HCPCS: 36415; 94640; 93005; 85379; 80053; 83605; 83615; 83735; 85025; 85610; 85730; 86140; 87040; 71045 ×2; 99285; 96374; 96361; Q0239

== ENCOUNTER 2020-10-24 19:42 | Emergency (ER) | payer BC ==
[2020-10-24 20:09] VITALS: RESP 18
[2020-10-24 20:16] LABS: Basophils # (A) 0.1 k/uL (0-0.2); Basophils % (A) 1 %; Eosinophils # (A) 0.2 k/uL (0-0.7); Eosinophils % (A) 2 %; HGB 14.2 gm/dL (13.0-17.5); Lymphocytes # (A) 0.9 k/uL (1.0-4.8); Lymphocytes % (A) 9 %; MCH 30.4 pg (25.0-35.0); MCHC 35.5 g/dL (31.0-37.0); MCV 85.7 fL (80.0-100.0); Mean Platelet Volume 7.3; Monocytes # (A) 0.9 k/uL (0-1.0); Monocytes % (A) 9 %; Neutrophils % (A) 79 %; Platelet Count 301 k/uL (150-450); RBC 4.66 m/uL (4.30-5.90); RDW 13.3 % (11.5-15.5); WBC 10.1 k/uL (3.8-10.6)
--- NOTE | 2020-10-24 20:21 | XR ---
EXAMINATION TYPE: XR chest 1V portable DATE OF EXAM: 10/24/2020 COMPARISON: 10/19/2020. HISTORY: Shortness of breath and Covid. TECHNIQUE: Single frontal view of the chest is obtained. FINDINGS: There is progression of airspace opacities, now diffuse in the right lung and mild to mode rate in the left lung base. No significant pleural effusion, or pneumothorax seen. The cardiac silho uette size is within normal limits. The osseous structures are intact. IMPRESSION: Progression of airspace disease.
--- NOTE | 2020-10-24 20:27 | ED ---
General Adult HPI - General Chief complaint: Shortness of Breath Stated complaint: Covid Time Seen by Provider: 10/24/20 19:52 Source: patient Mode of arrival: ambulatory Limitations: no limitations - History of Present Illness Initial comments: Dictation was produced using [employer] dictation software. please excuse any grammatical, word or spelling errors. This patient was cared for during a federal and state declared state of emergency secondary to Covid 19 Chief Complaint: 65-year-old male presents with shortness of breath, generalized fatigue History of Present Illness: 65-year-old male he was diagnosed with Covid a week ago. He's been symptomatic for the last 2 weeks. Patient are ready had monoclonal antibodies. States that he has not been feeling any better. Patient states he feels dyspneic mostly with exertion not so much at rest. States an monoclonal buys it nothing to help his symptoms. States that his fevers resolved. The ROS documented in this emergency department record has been reviewed and confirmed by me. Those systems with pertinent positive or negative responses have been documented in the HPI. All other systems are other negative and/or noncontributory. PHYSICAL EXAM: General Impression: Alert and oriented x3, not in acute distress HEENT: Normocephalic atraumatic, extra-ocular movements intact, pupils equal and reactive to light bilaterally, mucous membranes moist. Cardiovascular: Heart regular rate and rhythm Chest: Able to complete full sentences, no retractions, no tachypnea, also to auscultation bilaterally Abdomen: abdomen soft, non-tender, non-distended, no organomegaly Musculoskeletal: Pulses present and equal in all extremities, no peripheral edema Motor: no focal deficits noted Neurological: CN II-XII grossly intact, no focal motor or sensory deficits noted Skin: Intact with no visualized rashes Psych: Normal affect and mood ED course: 65-year-old male with chief complaint of Covid 19 symptoms that are not improved after 2 weeks of symptoms also after being administered monoclonal antibodies. Vital signs upon arrival shows temperature 90.8, heart rate 105, 94% on room air. Blood pressure triage is 86/52 however that was likely an error because rechecked again in the ER room is 124/73. Laboratory evaluation obtained. CBC, coag panel is unremarkable. D-dimer 0.47. Metabolic panel shows findings within acceptable limits. He does have elevated C-reactive protein. There was still some mild concern of worsening lung disease process given worse x-ray. CT angiogram of the chest was obtained showing no acute PE. There however was ground glass opacities consistent with Covid pneumonia. Ambulatory pulse ox was normal. Disposition plan was discussed with daughter and patient . Patient clinically stable at this time. He is told to continue monitoring his symptoms at home. Return premises discussed. Patient advised to continue quarantining. EKG interpretation: Ventricular rate 80, normal sinus rhythm, WI interval 182, QRS 84, QTC 428. No WI prolongation, no QTC prolongation, no ST or T-wave changes noted. Overall, this EKG is unremarkable - Related Data Home Medications Medication Instructions Recorded Confirmed Escitalopram [Lexapro] 10 mg PO DAILY 07/22/16 10/24/20 Azithromycin [Zithromax Z-pack (6 See Taper PO DIRECTED 10/24/20 10/24/20 tabs)] Valsartan/Hydrochlorothiazide 1 tab PO DAILY 10/24/20 10/24/20 [Valsartan-Hctz 160-25 mg Tab] amLODIPine [Norvasc] 5 mg PO DAILY 10/24/20 10/24/20 methylPREDNISolone [Medrol Dose See Taper PO DIRECTED 10/24/20 10/24/20 Pack] Allergies Allergy/AdvReac Type Severity Reaction Status Date / Time Oojesln-Nul-Emx Reductase AdvReac Unknown Verified 10/24/20 21:07 Inhibitor Review of Systems ROS Statement: Those systems with pertinent positive or pertinent negative responses have been documented in the HPI. ROS Other: All systems not noted in ROS Statement are negative. Past Medical History Past Medical History: Cancer, Hyperlipidemia, Hypertension Additional Past Medical History / Comment(s): basal cell skin cancer History of Any Multi-Drug Resistant Organisms: None Reported Past Surgical History: Heart Catheterization, Orthopedic Surgery Additional Past Surgical History / Comment(s): rt foot x2, skin cs removed Past Anesthesia/Blood Transfusion Reactions: No Reported Reaction Past Psychological History: No Psychological Hx Reported Smoking Status: Never smoker Past Alcohol Use History: Rare Past Drug Use History: None Reported - Past Family History Mother Family Medical History: Cancer Additional Family Medical History / Comment(s): basal cell skin cancer Father Family Medical History: Cancer Additional Family Medical History / Comment(s): basal cell skin cancer General Exam Limitations: no limitations Course Vital Signs 10/24/20 10/24/20 10/24/20 19:44 20:09 21:15 Temperature 99.8 F H Pulse Rate 105 H 86 81 Respiratory 22 18 18 Rate Blood Pressure 87/52 124/65 113/62 O2 Sat by Pulse 94 L 96 93 L Oximetry Medical Decision Making - Lab Data Result diagrams: 10/24/20 20:02 10/24/20 20:02 Lab Results 10/24/20 10/24/20 10/24/20 Range/Units 20:02 20:02 20:02 WBC 10.1 (3.8-10.6) k/uL RBC 4.66 (4.30-5.90) m/uL Hgb 14.2 (13.0-17.5) gm/dL Hct 40.0 (39.0-53.0) % MCV 85.7 (80.0-100.0) fL MCH 30.4 (25.0-35.0) pg MCHC 35.5 (31.0-37.0) g/dL RDW 13.3 (11.5-15.5) % Plt Count 301 (150-450) k/uL MPV 7.3 Neutrophils % 79 % Lymphocytes % 9 % Monocytes % 9 % Eosinophils % 2 % Basophils % 1 % Neutrophils # 8.0 H (1.3-7.7) k/uL Lymphocytes # 0.9 L (1.0-4.8) k/uL Monocytes # 0.9 (0-1.0) k/uL Eosinophils # 0.2 (0-0.7) k/uL Basophils # 0.1 (0-0.2) k/uL PT 10.2 (9.0-12.0) sec INR 0.9 (<1.2) APTT 22.4 (22.0-30.0) sec D-Dimer 0.47 (<0.60) mg/L FEU Sodium 136 L (137-145) mmol/L Potassium 3.5 (3.5-5.1) mmol/L Chloride 101 (98-107) mmol/L Carbon Dioxide 27 (22-30) mmol/L Anion Gap 8 mmol/L BUN 17 (9-20) mg/dL Creatinine 1.04 (0.66-1.25) mg/dL Est GFR (CKD-EPI)AfAm 86 (>60 ml/min/1.73 sqM) Est GFR (CKD-EPI)NonAf 74 (>60 ml/min/1.73 sqM) Glucose 105 H (74-99) mg/dL Plasma Lactic Acid William (0.7-2.0) mmol/L Calcium 8.9 (8.4-10.2) mg/dL Magnesium 2.2 (1.6-2.3) mg/dL Total Bilirubin 1.5 H (0.2-1.3) mg/dL AST 31 (17-59) U/L ALT 65 H (4-49) U/L Alkaline Phosphatase 89 (38-126) U/L Troponin I (0.000-0.034) ng/mL C-Reactive Protein 197.3 H (<10.0) mg/L Total Protein 6.4 (6.3-8.2) g/dL Albumin 3.4 L (3.5-5.0) g/dL 10/24/20 10/24/20 Range/Units 20:02 20:02 WBC (3.8-10.6) k/uL RBC (4.30-5.90) m/uL Hgb (13.0-17.5) gm/dL Hct (39.0-53.0) % MCV (80.0-100.0) fL MCH (25.0-35.0) pg MCHC (31.0-37.0) g/dL RDW (11.5-15.5) % Plt Count (150-450) k/uL MPV Neutrophils % % Lymphocytes % % Monocytes % % Eosinophils % % Basophils % % Neutrophils # (1.3-7.7) k/uL Lymphocytes # (1.0-4.8) k/uL Monocytes # (0-1.0) k/uL Eosinophils # (0-0.7) k/uL Basophils # (0-0.2) k/uL PT (9.0-12.0) sec INR (<1.2) APTT (22.0-30.0) sec D-Dimer (<0.60) mg/L FEU Sodium (137-145) mmol/L Potassium (3.5-5.1) mmol/L Chloride (98-107) mmol/L Carbon Dioxide (22-30) mmol/L Anion Gap mmol/L BUN (9-20) mg/dL Creatinine (0.66-1.25) mg/dL Est GFR (CKD-EPI)AfAm (>60 ml/min/1.73 sqM) Est GFR (CKD-EPI)NonAf (>60 ml/min/1.73 sqM) Glucose (74-99) mg/dL Plasma Lactic Acid William 1.4 (0.7-2.0) mmol/L Calcium (8.4-10.2) mg/dL Magnesium (1.6-2.3) mg/dL Total Bilirubin (0.2-1.3) mg/dL AST (17-59) U/L ALT (4-49) U/L Alkaline Phosphatase (38-126) U/L Troponin I <0.012 (0.000-0.034) ng/mL C-Reactive Protein (<10.0) mg/L Total Protein (6.3-8.2) g/dL Albumin (3.5-5.0) g/dL Disposition Clinical Impression: COVID-19 Disposition: HOME SELF-CARE Condition: Fair Instructions (If sedation given, give patient instructions): Viral Pneumonia (ED) Additional Instructions: Today you were evaluated for symptoms consistent with upper respiratory infection. Today you were evaluated for Covid 19. Your are stable for discharge, however it is instructed to to seek immediate medical attention especially if you develop worsening symptoms especially respiratory distress. If possible, try to obtain a pulse oximeter and monitor your oxygen at home. In the meantime please remain in quarantine for 14 days. For any other questions please contact [facility] for here in emergency department or [facility] at [phone] Is patient prescribed a controlled substance at d/c from ED?: No Referrals: Burak Ortez DO [Primary Care Provider] - 1-2 days Time of Disposition: 21:53
[2020-10-24 20:29] LABS: Albumin 3.4 g/dL (3.5-5.0); Calcium 8.9 mg/dL (8.4-10.2); Magnesium 2.2 mg/dL (1.6-2.3); Potassium 3.5 mmol/L (3.5-5.1); Total Bilirubin 1.5 mg/dL (0.2-1.3); Total Protein 6.4 g/dL (6.3-8.2)
[2020-10-24 20:32] LABS: D-Dimer 0.47 mg/L FEU (<0.60); INR 0.9 (<1.2); Partial Thromboplastin Time 22.4 sec (22.0-30.0); Prothrombin Time 10.2 sec (9.0-12.0)
[2020-10-24 20:52] LABS: C Reactive Protein 197.3 mg/L (<10.0)
--- NOTE | 2020-10-24 21:32 | CT ---
EXAMINATION TYPE: CT angio chest DATE OF EXAM: 10/24/2020 9:21 PM COMPARISON: Same-day radiograph. HISTORY: Shortness of breath, +covid x2 weeks ago. CT DLP: 387.1 mGycm Automated exposure control for dose reduction was used. CONTRAST: CTA scan of the thorax is performed with IV Contrast, patient injected with 100ml mL of Isovue 370, p ulmonary embolism protocol. MIP images are created and reviewed. FINDINGS: LUNGS: There are scattered moderate patchy ground glass opacities greater on the right, with moderate dependent consolidations in the bilateral lower lobes, right middle lobe and lingula. No significant pleural effusion or pneumothorax. MEDIASTINUM: There is satisfactory enhancement of the pulmonary artery and its branches, there is no CT evidence for pulmonary embolism. There are scattered multiple mildly enlarged mediastinal and hil ar lymph nodes, likely reactive. No pericardial effusion is seen. OTHER: No additional significant abnormality is seen. 3.7 cm simple appearing left renal cyst seen. IMPRESSION: NO ACUTE PE. BILATERAL GROUNDGLASS OPACITIES, COMPATIBLE WITH HISTORY OF COVID PNEUMONIA.
[2020-10-24 22:10] VITALS: BP 111/70; PULSE 83; TEMP 99.2
== END 2020-10-24 22:05 | disposition home or self-care (01) ==
LOC: EC 19:42
DX: U07.1 COVID-19 (principal); E78.5 Hyperlipidemia, unspecified; I10 Essential (primary) hypertension; Z85.828 Personal history of other malignant neoplasm of skin; Z79.899 Other long term (current) drug therapy; Z79.52 Long term (current) use of systemic steroids
CPT/HCPCS: 36415; 93005; 85379; 80053; 83605; 83735; 84484; 85025; 85610; 85730; 86140; 87040; 71045; 71275; 99285; Q9967

== ENCOUNTER → 2021-06-03 | Outpatient (CLI) | payer BC ==
--- NOTE | 2021-06-03 17:41 | SFUN ---
SLEEP CENTER FOLLOW UP NOTE DATE OF SERVICE: 06/03/2021 65-year-old gentleman who has been followed in Sleep Center for treatment of obstructive and central sleep apnea-hypopnea syndrome. The patient was not seen since April of 2019. He continued to use his BiPAP ST mode equipment every night recently started to feel that machine has episodes of stopped working. [place] Sleepiness Scale today is 6, which is normal. I checked his BiPAP unit. Pressure is 13/9 cm of water. Respiratory rate [address] mode. Usage is 30/30 nights for more than 4 hours with average usage 7.8 hours per night. Leak is 20 L/minute. Apnea-hypopnea index is 1.6 which is perfect. MEDICATIONS: Lexapro, Valsartan with hydrochlorothiazide, Norvasc. PHYSICAL EXAMINATION: GENERAL: Patient in no distress. BP 128/73, HR 68, RR 15, height 6 feet 1-1/2 inches, weight 228.6 pounds, temperature 97.5, oxygen saturation at room air 97%, body mass index 29.6. Oropharynx low position of soft palate, Mallampati 3. NECK: Supple, no JVD. Thyroid is not palpable. LUNGS: Clear to percussion and to auscultation. Good air exchange. No wheezing or rhonchi. HEART: S1, S2 regular. No murmurs, gallops, or rubs. ABDOMEN: Soft and nontender. Bowel sounds are present. No organomegaly appreciated. EXTREMITIES: No clubbing or cyanosis. BED PLACEMENT COORDINATOR: Awake, alert, and oriented X3. Cranial nerves 2 to 7 intact. There is no fasciculation or atrophy. noted. No focal deficits observed. IMPRESSION: 1. Obstructive sleep apnea and central sleep apnea-hypopnea syndrome on control with BiPAP in ST mode, normal respiration on BiPAP 100% compliance with treatment. BiPAP ST mode is more than 5 years old, started to have some problems sometimes, stopped working at night. 2. Hypertension. 3. History of anxiety. 4. Hyperlipidemia. PLAN: 1. Prescription to replace BiPAP unit with ST mode. 2. Patient will continue to use PAP equipment every night for the whole night. 3. Sleep hygiene with regular time in bed for at least 7-1/2 to 8 hours. 4. Precautions related to driving. No driving if feeling sleepiness. 5. I will maintain all necessary prescription for PAP supplies including mask, tube, filters. 6. Watching weight. 7. Follow-up visit in 30 to 90 days after the patient will get new BIPAP machine. Thank you very much for allowing me to participate in management of your patient. Sincerely, Jair Boston MD, PhD, FAASM Diplomat of [place] [employer] Sleep Medicine Board of [place] [employer] Director Speech And [facility] [place] MMLIZAL / PALAK: [id number] /
== END ==
LOC: SLEEP 15:27
PROVIDERS: ATTEND Internal Medicine
DX: G47.33 Obstructive sleep apnea (adult) (pediatric) (principal); G47.31 Primary central sleep apnea; I10 Essential (primary) hypertension; E78.5 Hyperlipidemia, unspecified; F41.9 Anxiety disorder, unspecified; Z99.89 Dependence on other enabling machines and devices; Z88.8 Allergy status to other drugs, medicaments and biological substances

== ENCOUNTER → 2021-06-17 | Outpatient (CLI) | payer BC ==
--- NOTE | 2021-06-17 10:07 | US ---
EXAMINATION TYPE: US thyroid st tissue head/neck DATE OF EXAM: 06/17/2021 COMPARISON: 06/17/2021 CLINICAL HISTORY: 65-year-old male E04.1 thyroid nodule. TECHNIQUE: Multiple sonographic images of the thyroid gland were obtained. FINDINGS: GLAND SIZE: Right Lobe: 5.4x1.9x2.3 cm Overall Parenchyma: homogenous Left Lobe: 5.1x1.8x2.1 cm Overall Parenchyma: homogeneous Isthmus Thickness: 0.5 cm NODULES RIGHT: # of nodules measured on right: 1 1. 1.1 X 0.9 x 0.7 cm, mid mid, heterogeneous hypoechoic TR4 nodule, which is wider than tall, with smooth margins, without echogenic foci. Prior size: 1.5 x 1.1 x 1.1 cm LEFT: # of nodules measured on left: 0 ISTHMUS: # of nodules measured in the isthmus: 0 Bilateral neck scanned, no evidence of lymphadenopathy. IMPRESSION: Mild thyromegaly with a solitary solid TR4 nodule in the right lobe measuring slightly smaller at 1.1 cm versus 1.5 cm, previously.
== END ==
LOC: RADUSWWP 07:46
PROVIDERS: ATTEND Otolaryngology
DX: E04.1 Nontoxic single thyroid nodule (principal)
CPT/HCPCS: 76536

== ENCOUNTER → 2021-09-23 | Outpatient (CLI) | payer MEDICARE ==
--- NOTE | 2021-09-24 09:25 | XR ---
EXAMINATION TYPE: XR chest 2V DATE OF EXAM: 09/23/2021 COMPARISON: Chest x-ray 10/24/2020 HISTORY: [id number] OTHER CHEST PAIN,SOB TECHNIQUE: Frontal and lateral views of the chest are obtained. FINDINGS: There is improvement in the previously identified airspace disease in the bilateral lungs. No evident pneumothorax or pleural effusion. Cardiac mediastinal silhouette is stable. Bones are unc hanged. Minimal patchy residual basilar density is noted. IMPRESSION: Improvement in aeration. There may be some residual scarring.
== END | disposition home or self-care (01) ==
LOC: RADXRYALE 16:04
PROVIDERS: ATTEND Physician Assistant
DX: R07.89 Other chest pain (principal); R06.02 Shortness of breath
CPT/HCPCS: 71046

== ENCOUNTER → 2022-07-05 | Outpatient (CLI) | payer MEDICARE, BC ==
--- NOTE | 2022-07-05 19:22 | US ---
EXAMINATION TYPE: US thyroid st tissue head/neck DATE OF EXAM: 07/05/2022 COMPARISON: Thyroid ultrasound 06/17/2021 CLINICAL HISTORY: E04.1 NONTOXIC SINGLE THYROID NODULE. Follow up thyroid nodule. Not on thyroid med s. GLAND SIZE: Right Lobe: 5.2 x 2.2 x 2.2 cm Overall Parenchyma: homogenous Left Lobe: 4.7 x 2.1 x 2.1 cm Overall Parenchyma: homogeneous Isthmus Thickness: 0.5 cm NODULES RIGHT: # of nodules measured on right: 1 1. 1.5 X 1.2 x 0.9 cm, mid, solid or almost completely solid, hypoechoic nodule, which is wider nori n tall, with ill-defined margins, without echogenic foci. TR-4. Prior size: 1.1 x 0.9 x 0.7 cm LEFT: # of nodules measured on left: 0 ISTHMUS: # of nodules measured in the isthmus: 0 Bilateral neck scanned, no evidence of lymphadenopathy. IMPRESSION: Slight increase in size of right thyroid lobe TR-4 1.5 cm nodule. Fine-needle aspiration is recommend ed. 2017 ACR TI-RADS LEVEL: TR-RADS 4 - Moderately Suspicious: Follow if > 1 cm, FNA if > 1.5 cm *Highest TI-RADS level nodule reported
== END | disposition home or self-care (01) ==
LOC: RADUSWWP 16:42
PROVIDERS: ATTEND Otolaryngology
DX: E04.1 Nontoxic single thyroid nodule (principal)
CPT/HCPCS: 76536

== ENCOUNTER → 2022-11-15 | Outpatient (CLI) | payer MEDICARE, BC ==
--- NOTE | 2022-11-15 08:34 | US ---
EXAMINATION TYPE: US carotid duplex BILAT DATE OF EXAM: 11/15/2022 COMPARISON: NONE CLINICAL INDICATION: Male, 67 years old with history of R42, G45.9; TECHNIQUE: Carotid duplex ultrasound examination. Indirect Doppler criteria was utilized. FINDINGS: EXAM MEASUREMENTS: RIGHT: Peak Systolic Velocity (PSV) cm/sec ----- Right CCA: 80.5 ----- Right ICA: 90.5 ----- Right ECA: 94.9 ICA/CCA ratio: 1.1 RIGHT: End Diastole cm/sec ----- Right CCA: 21.2 ----- Right ICA: 26.7 ----- Right ECA: 14.6 LEFT: Peak Systolic Velocity (PSV) cm/sec ----- Left CCA: 96.4 ----- Left ICA: 93.1 ----- Left ECA: 83.0 ICA/CCA ratio: 1.0 LEFT: End Diastole cm/sec ----- Left CCA: 26.6 ----- Left ICA: 39.7 ----- Left ECA: 8.4 VERTEBRALS (direction of flow): Right Vertebral: Antegrade Left Vertebral: Antegrade Rhythm: Normal No significant stenosis IMPRESSION: No evidence for hemodynamically significant stenosis Criteria for Assigning % of Stenosis / Diameter reduction (Estimation based on the indirect measurements of the internal carotid artery velocities (ICA PSV). 1. Normal (no stenosis)=ICA PSV < 125 cm/s: ratio < 2.0: ICA EDV<40 cm/s. 2. Less than 50% stenosis=ICA PSV < 125 cm/s: ratio < 2.0: ICA EDV<40 cm/s. 3. 50 to 69% stenosis=ICA PSV of 125 to 230 cm/s: ration 2.0 ? 4.0: ICA EDV 40-100 cm/s. 4. Greater than 70% stenosis to near occlusion= ICA PSV > 230 cm/s: ratio > 4.0: ICA EDV > 100 cm/s. 5. Near occlusion= ICA PSV velocities may be low or undetectable: variable ratio and ICA EDV. 6. Total occlusion=unable to detect flow.
--- NOTE | 2022-11-15 10:48 | MR ---
EXAMINATION TYPE: MR brain wo con DATE OF EXAM: 11/15/2022 COMPARISON: Prior MRI brain October 04, 2017 HISTORY: Evaluate for possible TIA. Confusion. TECHNIQUE: Multiplanar, multisequence imaging of the brain and brainstem is performed without IV cont rast. FINDINGS: Diffusion weighted images demonstrate no evidence of a recent infarct or other diffusion abnormality. There is no extraaxial fluid collection or significant white matter signal abnormality. There is mild ventricular and sulcal prominence redemonstrated. There is occasional tiny focus of T2 hyperintensit y seen throughout the white matter bilaterally. Approximately 5 tiny scattered lesions are redemonstr ated. Midline structures redemonstrate normal morphology. The craniocervical junction remains within ene l limits. Normal vascular flow voids are present. Owaz-im-[id number] mucosal thickening left maxillary sinus with severe mucosal thickening right maxillary sinus there is new from prior. Kqcg-cf-[id number] mucosal thickening bilateral ethmoid sinuses on current study is more prominent from prior. Globes ar e intact bilaterally. IMPRESSION: No MRI evidence for a recent infarct. Mild diffuse age-related cerebral atrophy and minim al probable chronic small vessel ischemic change redemonstrated without significant change. Chronic p aranasal sinus disease on the current study is more prominent from 2018 exam
--- NOTE | 2022-11-15 10:50 | MR ---
EXAMINATION TYPE: MR angio head wo con DATE OF EXAM: 11/15/2022 COMPARISON: NONE HISTORY: Evaluate for possible TIA. TECHNIQUE: Time of flight images focusing on the [place] of [place] were performed without contrast.. 2-D and 3-D postprocessing imaging is performed on a independent workstation and reviewed. FINDINGS: Codominant vertebral arteries are patent to the basilar junction. There is no significant f ocal stenosis or aneurysm in the posterior circulation. There is small caliber but patent right poste rior communicating artery. There is hypoplastic left posterior communicating artery. Images of the anterior circulation show patent anterior communicating artery. There is no significant focal stenosis or aneurysm in the anterior circulation. IMPRESSION: No aneurysm at the level of the [place] of [place].
--- NOTE | 2022-11-15 17:54 | CA ---
Transthoracic Echo Report Name: Hernandez Romeo Age: 67 Gender: M : 1955 Exam Date: 11/15/2022 08:41 Exam Location: [place] [facility] Ht (in): 74 Wt (lb): 218 Ordering Physician: Imer Ritter DO Attending/Referring Phys: Electrical Designer Drafter Elvia Blum RDCS Procedure CPT: Indications: R42 G45.9 Cardiac Hx: tia Technical Quality: Good Contrast 1: Total Dose (mL): Contrast 2: Total Dose (mL): MEASUREMENTS (Male / Female) Normal Values 2D ECHO LV Diastolic Diameter PLAX 4.5 cm 4.2 - 5.9 / 3.9 - 5.3 cm LV Systolic Diameter PLAX 3.2 cm IVS Diastolic Thickness 1.1 cm 0.6 - 1.0 / 0.6 - 0.9 cm LVPW Diastolic Thickness 1.1 cm 0.6 - 1.0 / 0.6 - 0.9 cm LV Relative Wall Thickness 0.5 RV Internal Dim ED PLAX 3.3 cm LA Systolic Diameter LX 3.7 cm 3.0 - 4.0 / 2.7 - 3.8 cm LA Volume 43.2 cm??? 18 - 58 / 22 - 52 cm??? M-MODE Aortic Root Diameter MM 3.5 cm MV E Point Septal Separation 0.6 cm AV Cusp Separation MM 2.3 cm DOPPLER AV Peak Velocity 104.6 cm/s AV Peak Gradient 4.4 mmHg MV Area PHT 3.4 cm??? Mitral E Point Velocity 90.1 cm/s Mitral A Point Velocity 71.3 cm/s Mitral E to A Ratio 1.3 MV Deceleration Time 222.3 ms MV E' Velocity 9.4 cm/s Mitral E to MV E' Ratio 9.5 TR Peak Velocity 211.2 cm/s TR Peak Gradient 17.8 mmHg Right Ventricular Systolic Press 22.8 mmHg FINDINGS Left Ventricle Left ventricular ejection fraction is estimated at 55-60 %. Mildly increased septal wall thickness. Left ventricular cavity size normal. Right Ventricle Mild right ventricular dilatation. Right ventricular systolic pressure within normal limits. Right Atrium Normal right atrial size. Negative saline bubbles study. No PFO noted Left Atrium Normal left atrial size. Mitral Valve Structurally normal mitral valve. No mitral stenosis. No evidence for mitral valve prolapse. Mild mitral regurgitation. Aortic Valve Trileaflet aortic valve. No aortic valve stenosis or regurgitation. Tricuspid Valve Structurally normal tricuspid valve. Trace to mild tricuspid regurgitation. Pulmonic Valve Structurally normal pulmonic valve. Trace pulmonic regurgitation. Pericardium Normal pericardium. No pericardial effusion. Aorta Normal size aortic root and proximal ascending aorta. CONCLUSIONS Normal LV systolic function Saline contrast study did not reveal any evidence of shunting Mild mitral regurgitation Previewed by: Dr. Chris Abroleda MD (Electronically Signed) Final Date: 15 November 2022 17:53
== END | disposition home or self-care (01) ==
LOC: RADUSWWP 06:53
PROVIDERS: ATTEND Psychiatry & Neurology Neurology
DX: G45.9 Transient cerebral ischemic attack, unspecified (principal); G31.1 Senile degeneration of brain, not elsewhere classified; J32.8 Other chronic sinusitis; R42 Dizziness and giddiness
CPT/HCPCS: 70544; 70551; 93306; 93880

== ENCOUNTER → 2023-12-28 | Outpatient (CLI) | payer MEDICARE, BC ==
[2023-12-28 14:28] VITALS: BP 151/80; PULSE 61; RESP 16; TEMP 98.2
--- NOTE | 2023-12-28 14:32 | P.PROGSL ---
Subjective DATE: 12/28/2023 FOLLOW UP VISIT. Patient with obstructive sleep apnea hypopnea syndrome return to sleep center for follow-up visit. Information from previous visit have been reviewed. Patient is using PAP equipment every night for the whole night, getting PAP supplies in time. The patient does not have significant problems with the mask, PAP unit and humidification. [place] sleepiness scale is 7, which is in normal range. I checked information from PAP unit. BPAP ST mode unit pressure 13/9 cm H2O with respiratory rate 12 . Usage is 100% for more then 4 hours, average 7.6 hours per night. Leak is 3 l/m, which is in acceptable range. Apnea Hypopnea Index is 1.7, which is normal. MEDICATIONS:1. Lexapro 2. Amlodipine 3. Plavix 4. Valsartanhydrochlorothiazide During physical exam: GENERAL: A pleasant patient without any distress. VITAL SIGNS: Please see below, weight 231.2 pounds, BMI 30.4. HEENT: PERRLA, EOMI.low position of soft palate, Mallapati 3 . NECK: Supple. No JVD. LUNGS: Clear to percussion and to auscultation. Good air exchange. No wheezing or rhonchi. HEART: S1, S2 regular. ABDOMEN: Soft and nontender.[] EXTREMITIES: No clubbing or cyanosis. INFORMATION ASSURANCE SPECIALIST: Awake, alert, and oriented x3. No focal deficit. Impressions: 1. Obstructive and central sleep apnea-hypopnea syndrome. Patient demonstrated great compliance with treatment, benefiting from treatment. 2. Hypertension. 3. Hyperlipidemia. 4. History of anxiety. Plan: 1. Continue using PAP equipment every night for the whole night. 2. To change air filter at least 1-2 times per month. 3. PAP unit should stay lower then position of the head. 4. Advised patient to remove all remaining water from humidifier canister daily and make it dry after each usage. Refill canister with fresh distilled water before each usage. 5. Sleep hygiene with regular time in bed for at least 8 hours. 6. Precautions related to driving. No driving if feel any sleepiness. 7. I will maintain prescription for PAP supplies including mask, tube, filters. 8. Follow up visit in 6 months or earlier if patient has any problems. 9. Watching weight. Thank you very much for allowing me to participate in the management of your patient. Jair Boston MD, PhD, FAASM. Diplomat of [place] [employer], Sleep Medicine Board by [place] [employer] Manager of [facility] [place] Objective - Vital Signs Vital Signs: Vital Signs Temp 98.2 F 12/28/23 14:03 Pulse 61 12/28/23 14:03 Resp 16 12/28/23 14:03 BP 151/80 12/28/23 14:03 Pulse Ox 98 12/28/23 14:03 FiO2 Intake & Output 12/27/23 12/28/23 12/28/23 18:59 06:59 18:59 Weight 104.837 kg Home Medications: Home Medications Medication Instructions Recorded Confirmed Type Escitalopram [Lexapro] 10 mg PO DAILY 07/22/16 09/10/22 History Valsartan/Hydrochlorothiazide 1 tab PO DAILY 10/24/20 09/10/22 History [Valsartan-Hctz 160-25 mg Tab] amLODIPine [Norvasc] 7.5 mg PO DAILY 10/24/20 09/10/22 History
== END ==
LOC: 3 N SLEEP 13:44
PROVIDERS: ATTEND Internal Medicine
DX: G47.33 Obstructive sleep apnea (adult) (pediatric) (principal); I10 Essential (primary) hypertension; G47.37 Central sleep apnea in conditions classified elsewhere; F41.9 Anxiety disorder, unspecified; E78.5 Hyperlipidemia, unspecified; Z99.89 Dependence on other enabling machines and devices; Z79.02 Long term (current) use of antithrombotics/antiplatelets; Z79.899 Other long term (current) drug therapy; Z88.8 Allergy status to other drugs, medicaments and biological substances
CPT/HCPCS: 99212

== ENCOUNTER → 2024-08-08 | Outpatient (CLI) | payer MEDICARE, BC ==
[2024-08-08 13:22] VITALS: BP 120/73; PULSE 78; RESP 16; TEMP 97.9
--- NOTE | 2024-08-08 13:32 | P.PROGSL ---
Subjective DATE: 08/08/2024 FOLLOW UP VISIT. Patient with obstructive sleep apnea hypopnea syndrome return to sleep center for follow-up visit. Information from previous visit have been reviewed. Patient is using PAP equipment every night for the whole night, getting PAP supplies in time. The patient does not have significant problems with the mask, PAP unit and humidification. [place] sleepiness scale is 6, which is normal. I checked information from PAP unit. BPAP ST mode unit pressure 13/9 with respiratory rate 12 cm H2O. Usage is 100% for more then 4 hours, average 8.6 hours per night. Leak is 36 l/m, which is in acceptable range. Apnea Hypopnea Index is 4.3, which is normal. MEDICATIONS have been reviewed, please see below. During physical exam: GENERAL: A pleasant patient without any distress. VITAL SIGNS: Please see below, weight is 234 lbs. HEENT: PERRLA, EOMI.low position of soft palate, Mallapati 3. NECK: Supple. No JVD. LUNGS: Clear to percussion and to auscultation. Good air exchange. No wheezing or rhonchi. HEART: S1, S2 regular. ABDOMEN: Soft and nontender.[] EXTREMITIES: No clubbing or cyanosis. DIGESTER CAPPER: Awake, alert, and oriented x3. No focal deficit. Impressions: 1. Obstructive sleep apnea-hypopnea syndrome. Patient demonstrated great compliance with treatment, benefiting from treatment. 2. Hypertension. 3. History of anxiety. 4. Hyperlipidemia. Plan: 1. Continue using PAP equipment every night for the whole night. 2. Sleep hygiene with regular time in bed for at least 7.5-8 hours 3. PAP unit should stay lower then position of the head. 4. Advised patient to remove all remaining water from humidifier canister daily and make it dry after each usage. Refill canister with fresh distilled water before each usage. 5. Watching and losing weight. 6. Precautions related to driving. No driving if feel any sleepiness. 7. I will maintain prescription for PAP supplies including mask, tube, filters. 8. Follow up visit in 8 months or earlier if patient has any problems. Thank you very much for allowing me to participate in the management of your patient. Jair Boston MD, PhD, FAASM. Diplomat of [place] [employer], Sleep Medicine Board by [place] [employer] Merchandise Pickup/Receiving Associate of [facility] [place] Objective - Vital Signs Vital Signs: Vital Signs Temp 97.9 F 08/08/24 13:21 Pulse 78 08/08/24 13:21 Resp 16 08/08/24 13:21 BP 120/73 08/08/24 13:21 Pulse Ox 97 08/08/24 13:21 FiO2 Intake & Output 08/07/24 08/08/24 08/08/24 18:59 06:59 18:59 Weight 106.141 kg Home Medications: Home Medications Medication Instructions Recorded Confirmed Type Escitalopram [Lexapro] 10 mg PO DAILY 07/22/16 08/08/24 History Valsartan/Hydrochlorothiazide 1 tab PO DAILY 10/24/20 08/08/24 History [Valsartan-Hctz 160-25 mg Tab] amLODIPine [Norvasc] 7.5 mg PO DAILY 10/24/20 08/08/24 History Clopidogrel [Plavix] 75 mg PO DAILY 08/08/24 08/08/24 History Rosuvastatin Calcium 5 mg PO DAILY 08/08/24 08/08/24 History Rosuvastatin [Crestor] 10 mg PO DAILY 08/08/24 History
== END ==
LOC: 3 N SLEEP 13:08
PROVIDERS: ATTEND Internal Medicine
DX: G47.33 Obstructive sleep apnea (adult) (pediatric) (principal); I10 Essential (primary) hypertension; E78.5 Hyperlipidemia, unspecified; Z99.89 Dependence on other enabling machines and devices; Z88.1 Allergy status to other antibiotic agents
CPT/HCPCS: 99212

== ENCOUNTER → 2024-08-24 | Outpatient (CLI) | payer MEDICARE, BC ==
--- NOTE | 2024-08-24 15:43 | US ---
EXAMINATION TYPE: US thyroid st tissue head/neck DATE OF EXAM: 08/24/2024 COMPARISON: 07/05/22 CLINICAL INDICATION: Male, 68 years old with history of E04.1 NONTOXIC SINGLE THYROID NODULE; follow up TECHNIQUE: Grayscale and color Doppler imaging of the thyroid gland. FINDINGS: GLAND SIZE: Right Lobe: 5.6 x 1.7 x 2.2 cm Overall Parenchyma: homogeneous Left Lobe: 4.9 x 1.9 x 1.9 cm Overall Parenchyma: homogeneous Isthmus Thickness: 0.37 cm NODULES RIGHT: # of nodules measured on right: 1 1. 1.5 X 1.3 x 0.8 cm, mid mid, solid or almost completely solid, hypoechoic nodule, which is wider than tall, with lobulated or irregular margins, without echogenic foci. TR 4 Prior size: 1.5 x 1.2 x 0.9 cm LEFT: # of nodules measured on left: 0 ISTHMUS: # of nodules measured in the isthmus: 0 Bilateral neck scanned, no evidence of lymphadenopathy. IMPRESSION: Moderately suspicious nodule right lobe thyroid. Fine-needle aspiration can be performed. 2017 ACR TI-RADS LEVEL: TR-RADS 4 - Moderately Suspicious: Follow if > 1 cm, FNA if > 1.5 cm *Highest TI-RADS level nodule reported [email or web address] [facility], , 08/24/2024 3:41 PM
== END | disposition home or self-care (01) ==
LOC: RADUSWWP 15:05
PROVIDERS: ATTEND Family Medicine
DX: E04.1 Nontoxic single thyroid nodule (principal)
CPT/HCPCS: 76536